=== PATIENT | female | born 1955 | race Asian ===

== ENCOUNTER 2021-01-05 12:11 | Emergency (ER) | payer OTHER ==
[~2021-01-05] VITALS: Ht 167.6 cm; Wt 87.1 kg
[2021-01-05 12:20] VITALS: TEMP 97
[2021-01-05 13:05] LABS: PLATELET COUNT 232 K/uL (152-353)
[2021-01-05 13:07] LABS: POTASSIUM 3.6 mmol/L (3.6-5.2)
[2021-01-05 13:30] VITALS: BP 156/76
== END 2021-01-05 13:47 | disposition home or self-care (01) ==
LOC: ED 12:11
PROVIDERS: Emergency Medicine Emergency Medical Services
DX: I10 Essential (primary) hypertension (principal)
CPT/HCPCS: 80053; 81000; 85027; 99283